=== PATIENT | female | born 1995 | race Caucasian/White ===

== ENCOUNTER → 2017-08-12 | Outpatient (CLI) | payer BC ==
--- NOTE | 2017-08-12 09:13 | US ---
EXAMINATION TYPE: US gallbladder DATE OF EXAM: 08/12/2017 COMPARISON: NONE CLINICAL HISTORY: 21-year-old female R10.13 Epigastric Pain. TECHNIQUE: Multiple sonographic images of the right upper quadrant are obtained. FINDINGS: Liver Length: 13.8 cm Gallbladder Wall: 0.1 cm CBD: 0.1 cm Right Kidney: 8.8 x 3.5 x 3.9 cm Pancreas: wnl Liver: Normal size and with normal homogeneous echotexture. No focal lesion. Gallbladder: No abnormal gallbladder distention, wall thickening, pericholecystic fluid, or shadowin g calculi. Junctional folds are present within. Evidence for sonographic Frias's sign: No CBD: wnl Right Kidney: There is a tiny 2 mm area of shadowing in the mid to lower pole that could represent a small nonobstructive calculus. No hydronephrosis. IMPRESSION: 1. A 2 mm area of shadowing in the mid to lower pole of the right kidney could represent a tiny nonob structive calculus. 2. Otherwise, unremarkable sonographic examination of the right upper quadrant.
== END | disposition home or self-care (01) ==
LOC: RADUSWWP 07:02
PROVIDERS: ATTEND Surgery
DX: R10.13 Epigastric pain (principal)
CPT/HCPCS: 76705

== ENCOUNTER 2017-10-04 10:50 | Emergency (ER) | payer BC ==
--- NOTE | 2017-10-04 12:26 | ED ---
General Adult HPI - General Chief complaint: Neuro Symptoms/Deficit Stated complaint: headache, facial/hand numbness Time Seen by Provider: 10/04/17 11:59 Source: patient, RN notes reviewed, old records reviewed Mode of arrival: ambulatory Limitations: no limitations - History of Present Illness Initial comments: This is a 21-year-old female to the ER for evaluation. Patient with a few different complaints today. Patient complaining of numbness and tingling. Patient had left-sided facial numbness and tingling. She also experienced some vision changes blurry vision and difficulty with focus, complaining of right- sided headache. Patient denies any symptoms of numbness and tingling in her hands or fingers. No fevers. No recent injuries. No prior history of significant headache and neurological complaint. She did have one episode of vomiting last night. Denies chance of takes no medications. No drug or alcohol abuse - Related Data Home Medications Medication Instructions Recorded Confirmed Acetaminophen Tab [Tylenol Tab] 325 mg PO Q4H PRN 10/04/17 10/04/17 Blisovi Fe 1 tab PO DAILY@1230 10/04/17 10/04/17 Omeprazole [Omeprazole] 20 mg PO DAILY 10/04/17 10/04/17 Allergies Allergy/AdvReac Type Severity Reaction Status Date / Time clindamycin Allergy Rash/Hives Verified 10/04/17 12:06 Review of Systems ROS Statement: Those systems with pertinent positive or pertinent negative responses have been documented in the HPI. ROS Other: All systems not noted in ROS Statement are negative. Past Medical History Past Medical History: GERD/Reflux History of Any Multi-Drug Resistant Organisms: None Reported Past Surgical History: No Surgical Hx Reported Past Psychological History: No Psychological Hx Reported Smoking Status: Never smoker Past Alcohol Use History: Occasional Past Drug Use History: None Reported General Exam - General Exam Comments Initial Comments: NIH of 0 Limitations: no limitations General appearance: alert, in no apparent distress Head exam: Present: atraumatic, normocephalic, normal inspection Eye exam: Present: normal appearance, PERRL, EOMI. Absent: scleral icterus, conjunctival injection, periorbital swelling ENT exam: Present: normal exam, mucous membranes moist Neck exam: Present: normal inspection. Absent: tenderness, meningismus, lymphadenopathy Respiratory exam: Present: normal lung sounds bilaterally. Absent: respiratory distress, wheezes, rales, rhonchi, stridor Cardiovascular Exam: Present: regular rate, normal rhythm, normal heart sounds. Absent: systolic murmur, diastolic murmur, rubs, gallop, clicks GI/Abdominal exam: Present: soft, normal bowel sounds. Absent: distended, tenderness, guarding, rebound, rigid Extremities exam: Present: normal inspection, full ROM, normal capillary refill. Absent: tenderness, pedal edema, joint swelling, calf tenderness Back exam: Present: normal inspection Neurological exam: Present: alert, oriented X3, CN II-XII intact Psychiatric exam: Present: normal affect, normal mood Skin exam: Present: warm, dry, intact, normal color. Absent: rash Course Vital Signs 10/04/17 10/04/17 10/04/17 11:24 12:30 13:29 Temperature 99.1 F Pulse Rate 95 82 68 Respiratory 16 18 18 Rate Blood Pressure 137/62 123/73 119/55 O2 Sat by Pulse 99 97 98 Oximetry - Reevaluation(s) Reevaluation #1: 10/04/17 12:36 Patient currently remains asymptomatic Medical Decision Making - Medical Decision Making 21 female the ER for evaluation regarding not significant left sided paresthesias, numbness and tingling. Face. Symptoms are all completely resolved remain resolved throughout stay, labwork CT negative. Patient to be discharged home - Lab Data Result diagrams: 10/04/17 11:47 10/04/17 11:47 Lab Results 10/04/17 10/04/17 10/04/17 Range/Units 11:47 11:47 11:47 WBC 12.3 H (3.8-10.6) k/uL RBC 4.84 (3.80-5.40) m/uL Hgb 15.0 (11.4-16.0) gm/dL Hct 42.0 (34.0-46.0) % MCV 86.9 (80.0-100.0) fL MCH 30.9 (25.0-35.0) pg MCHC 35.6 (31.0-37.0) g/dL RDW 11.8 (11.5-15.5) % Plt Count 336 (150-450) k/uL Sodium 144 (137-145) mmol/L Potassium 4.4 (3.5-5.1) mmol/L Chloride 105 (98-107) mmol/L Carbon Dioxide 23 (22-30) mmol/L Anion Gap 16 mmol/L BUN 6 L (7-17) mg/dL Creatinine 0.70 (0.52-1.04) mg/dL Est GFR (CKD-EPI)AfAm >90 (>60 ml/min/1.73 sqM) Est GFR (CKD-EPI)NonAf >90 (>60 ml/min/1.73 sqM) Glucose 88 (74-99) mg/dL Calcium 9.9 (8.4-10.2) mg/dL Total Bilirubin 1.0 (0.2-1.3) mg/dL AST 20 (14-36) U/L ALT 13 (9-52) U/L Alkaline Phosphatase 69 (38-126) U/L Total Protein 7.8 (6.3-8.2) g/dL Albumin 4.7 (3.5-5.0) g/dL Urine Color Urine Appearance (Clear) Urine pH (5.0-8.0) Ur Specific Gibson (1.001-1.035) Urine Protein (Negative) Urine Glucose (UA) (Negative) Urine Ketones (Negative) Urine Blood (Negative) Urine Nitrite (Negative) Urine Bilirubin (Negative) Urine Urobilinogen (<2.0) mg/dL Ur Leukocyte Esterase (Negative) Urine RBC (0-5) /hpf Urine WBC (0-5) /hpf Ur Squamous Epith Cells (0-4) /hpf Urine Mucus (None) /hpf Urine HCG, Qual Not Detected (Not Detectd) 10/04/17 Range/Units 11:47 WBC (3.8-10.6) k/uL RBC (3.80-5.40) m/uL Hgb (11.4-16.0) gm/dL Hct (34.0-46.0) % MCV (80.0-100.0) fL MCH (25.0-35.0) pg MCHC (31.0-37.0) g/dL RDW (11.5-15.5) % Plt Count (150-450) k/uL Sodium (137-145) mmol/L Potassium (3.5-5.1) mmol/L Chloride (98-107) mmol/L Carbon Dioxide (22-30) mmol/L Anion Gap mmol/L BUN (7-17) mg/dL Creatinine (0.52-1.04) mg/dL Est GFR (CKD-EPI)AfAm (>60 ml/min/1.73 sqM) Est GFR (CKD-EPI)NonAf (>60 ml/min/1.73 sqM) Glucose (74-99) mg/dL Calcium (8.4-10.2) mg/dL Total Bilirubin (0.2-1.3) mg/dL AST (14-36) U/L ALT (9-52) U/L Alkaline Phosphatase (38-126) U/L Total Protein (6.3-8.2) g/dL Albumin (3.5-5.0) g/dL Urine Color Yellow Urine Appearance Cloudy H (Clear) Urine pH 6.0 (5.0-8.0) Ur Specific Gibson 1.024 (1.001-1.035) Urine Protein Trace H (Negative) Urine Glucose (UA) Negative (Negative) Urine Ketones 1+ H (Negative) Urine Blood Negative (Negative) Urine Nitrite Negative (Negative) Urine Bilirubin Negative (Negative) Urine Urobilinogen <2.0 (<2.0) mg/dL Ur Leukocyte Esterase Small H (Negative) Urine RBC 4 (0-5) /hpf Urine WBC 5 (0-5) /hpf Ur Squamous Epith Cells 2 (0-4) /hpf Urine Mucus Rare H (None) /hpf Urine HCG, Qual (Not Detectd) - Radiology Data Radiology results: report reviewed (CT brain CTa negative), image reviewed Disposition Clinical Impression: Paresthesia, Headache Disposition: HOME SELF-CARE Condition: Good Instructions: Acute Headache (ED), Paresthesia (ED) Is patient prescribed a controlled substance at discharge?: No If prescribed controlled substance>3 days was MAPS reviewed?: No When asked, does pt state using other controlled substances?: No Referrals: Yaz Jacinto MD [Primary Care Provider] - 1-2 days
[2017-10-04 12:27] LABS: ALT 13 U/L (9-52); AST 20 U/L (14-36); Albumin 4.7 g/dL (3.5-5.0); Alkaline Phosphatase 69 U/L (38-126); Anion Gap 16 mmol/L; Blood Urea Nitrogen 6 mg/dL (7-17); Calcium 9.9 mg/dL (8.4-10.2); Carbon Dioxide 23 mmol/L (22-30); Chloride 105 mmol/L (98-107); Glucose 88 mg/dL (74-99); Potassium 4.4 mmol/L (3.5-5.1); Sodium 144 mmol/L (137-145); Total Protein 7.8 g/dL (6.3-8.2)
[2017-10-04] MEDS ORDERED: RX INFO: IV CONTRAST WAS GIVEN 1 EACH MISC MISCELLANE PRN (12:32)
[2017-10-04 12:34] LABS: MCH 30.9 pg (25.0-35.0); MCHC 35.6 g/dL (31.0-37.0); MCV 86.9 fL (80.0-100.0); Mean Platelet Volume 7.4; Platelet Count 336 k/uL (150-450); RBC 4.84 m/uL (3.80-5.40); RDW 11.8 % (11.5-15.5); WBC 12.3 k/uL (3.8-10.6)
[2017-10-04 12:48] LABS: Appearance,Urine Cloudy (Clear); Bilirubin,Urine Negative (Negative); Blood,Urine Negative (Negative); Color,Urine Yellow; Glucose,Urine (UA) Negative (Negative); Ketones,Urine 1+ (Negative); Leukocyte Esterase,Urine Small (Negative); Mucus,Urine Rare /hpf; Nitrite,Urine Negative (Negative); Protein,Urine Trace (Negative); RBC,Urine 4 /hpf (0-5); Specific Gravity,Urine 1.024 (1.001-1.035); Squamous Epithelial Cell,Urine 2 /hpf (0-4); Urobilinogen,Urine <2.0 mg/dL (<2.0); WBC,Urine 5 /hpf (0-5)
--- NOTE | 2017-10-04 13:13 | CT ---
EXAMINATION TYPE: CT brain wo con DATE OF EXAM: 10/04/2017 COMPARISON: NONE HISTORY: 21 year-old female with left sided facial, tongue and upper ext numbness, BARGER, vision changes and neck pain TECHNIQUE: Examination was done in axial plane without intravenous contrast. Coronal and sagittal r econstructions performed. CT DLP: 1317 (brain and CTA head, neck) mGycm Automated exposure control for dose reduction was used. FINDINGS: There is no evidence of acute intracranial hemorrhage, acute ischemic changes, mass, mass-effect, or extra-axial fluid collection. There is no effacement of cerebral sulci or basal subarachnoid cister ns. There is no hydrocephalus. There is no midline shift. Suresh-white matter distinction is preserv ed. Paranasal sinuses and mastoid air cells well pneumatized. Orbits and globes are intact. IMPRESSION: No acute intracranial abnormality seen. If symptoms persist, consider MRI.
--- NOTE | 2017-10-04 13:41 | CT ---
EXAMINATION TYPE: CT angio head neck DATE OF EXAM: 10/04/2017 HISTORY: Lt sided facial, tongue and upper ext numbness, BARGER, vision changes and neck pain COMPARISON: NONE CT DLP: 1317 (brain, CTA neck and head) mGycm. Automated Exposure Control for Dose Reduction was Uti lized. TECHNIQUE: CTA scan of the neck is performed with IV Contrast, patient injected with 65 mL of Isovue 370, axial images are obtained, coronal and sagittal reformatted images are reviewed. Three-D recons tructed images are created on an independent workstation and reviewed. FINDINGS: Carotid/Vascular Structures: Normal, there is a 4 vessel arch Other: No significant abnormality IMPRESSION: No significant abnormality is seen.
[2017-10-04 13:50] VITALS: RESP 18
[2017-10-04 14:15] VITALS: BP 111/64; PULSE 73; TEMP 98.8
== END 2017-10-04 14:15 | disposition home or self-care (01) ==
LOC: EC 10:50
DX: R20.2 Paresthesia of skin (principal); R51 Headache; R11.10 Vomiting, unspecified; K21.9 Gastro-esophageal reflux disease without esophagitis; Z79.899 Other long term (current) drug therapy; Z88.1 Allergy status to other antibiotic agents
CPT/HCPCS: 36415; 70450; 70496; 70498; 80053; 81001; 81025; 85027; 99284

== ENCOUNTER → 2020-09-26 | Outpatient (CLI) | payer BC ==
--- NOTE | 2020-09-26 09:17 | NM ---
EXAMINATION TYPE: NM hepatobiliary w EF DATE OF EXAM: 09/26/2020 COMPARISON: NONE HISTORY: Pain TECHNIQUE: After the intravenous administration of 4.0 mCi Tc 99m Mebrofenin hepatobiliary scintigrap hy is performed. Immediate images post injection. FINDINGS: There is satisfactory initial accumulation of tracer by the liver. The gallbladder is visualized wit hin 12 minutes. The small bowel activity is noted within 60 minutes. At one hour 8 ounces of oral e nsure plus is given to mimic CCK and gallbladder ejection fraction is calculated at 80 %, in the norm al range. Therefore there is no scintigraphic evidence of cystic or common bile duct obstruction to suggest acute cholecystitis or gallbladder dyskinesia. IMPRESSION: Exam is within normal limits.
== END | disposition home or self-care (01) ==
LOC: RADNMMAIN 06:58
PROVIDERS: ATTEND Internal Medicine
DX: R10.11 Right upper quadrant pain (principal)
CPT/HCPCS: 78226; A9537